=== PATIENT | male | born 1965 | race Caucasian/White ===

== ENCOUNTER 2016-05-01 12:01 | Emergency (ER) | payer BC ==
[~2016-05-01] VITALS: Wt 81.0 kg
[2016-05-01] MEDS ORDERED: KETOROLAC 60 MG INJ IM STA (13:16)
[2016-05-01] MEDS ORDERED: HYDROCODONE/APAP (10/325) TAB PO ONE (13:30)
[2016-05-01 13:36] LABS: URINE BLOOD (Dip) POC Trace-lysed (NEGATIVE)
--- NOTE | 2016-05-01 14:11 | RADRPT ---
PROCEDURE: XR lumbosacral Spine Series CLINICAL INDICATION: Pain TECHNIQUE: 3 standard radiographs were taken of the lumbosacral spine. COMPARISON: None FINDINGS: Alignment: the osseous elements are well aligned without evidence of subluxation. Disk spaces: the disk spaces are adequately maintained. Osseous structures: appear intact with no fracture or osseous destruction identified. There is mild diffuse anterior spondylosis most extensive on the superior endplate of L4. Joint spaces: the facet joints joints appear unremarkable. The sacroiliac joints appear normal. Soft tissues: appear unremarkable. IMPRESSION: 1. Mild anterior spondylosis 2. Otherwise, unremarkable lumbosacral spine series. Physician Ming Date Time Electronically viewed and signed by Physician Ming on 05/01/2016 14:11 /
[2016-05-01] MEDS ORDERED: IBUP-1542 PO (14:27)
[2016-05-01] MEDS ORDERED: HYDR-906 PO (14:27)
--- NOTE | 2016-05-01 14:31 | ERD ---
ER Documentation Chief Complaint Date/Time DATE: 05/01/16 TIME: 14:29 Chief Complaint LOWER CENTER OF BACKPAIN SINCE YESTERDAY GETTING WORSE TODAY .NO TRAUMA HPI This 50-year-old male presents with low back pain since yesterday. He denies any fall or inciting events. He was sitting on the couch when it began. Did play soccer a couple days before. He denies any bowel or bladder incontinence, weakness, fevers, urinary complaints. Patient has additional complaints of intermittent sharp chest pain although none currently. He has an additional complaint of bitemporal headache intermittently for last month. Denies any shortness of breath, rashes, neck stiffness, visual changes. ROS All systems reviewed and are negative except as per history of present illness. Medications Home Meds Active Scripts Hydrocodone/Acetaminophen (Haines 5-325 Tablet) 1 Each Tablet, 1 TAB PO Q6H Y for PAIN, #12 TAB Prov:DANIEL BRADLEY MD 05/01/16 Ibuprofen* (Motrin*) 600 Mg Tab, 600 MG PO Q6, #20 TAB Prov:DANIEL BRADLEY MD 05/01/16 PMhx/Soc History of Surgery: No Anesthesia Reaction: No Hx Neurological Disorder: No Hx Respiratory Disorders: No Hx Cardiac Disorders: No Hx Psychiatric Problems: No Hx Miscellaneous Medical Probl: No Physical Exam Vitals Vital Signs Date Time Temp Pulse Resp B/P Pulse Ox O2 Delivery O2 Flow Rate FiO2 05/01/16 12:03 97.8 71 16 114/60 98 Physical Exam Const: [] Alert, [id number] per Head: Atraumatic Eyes: Normal Conjunctiva ENT: Normal External Ears, Nose and Mouth. Neck: Full range of motion..~ No meningismus. Resp: Clear to auscultation bilaterally Cardio: Regular rate and rhythm, no murmurs Abd: Soft, non tender, non distended. Normal bowel sounds Skin: No petechiae or rashes Back: No midline or flank tenderness. Some generalized tenderness L4-5 paraspinous muscles without midline tenderness or deformities. Patient shows no appreciable deficits. Ext: No cyanosis, or edema Neur: Awake and alert. Ambulatory with discomfort without deficits or weakness Psych: Normal Mood and Affect Results 24 hrs Laboratory Tests Test 05/01/16 13:38 Bedside Urine Blood Trace-lysed Bedside Urine Glucose (UA) Negative Bedside Urine Ketones (LAB) Negative Bedside Urine Leukocyte Esterase (L Negative Bedside Urine Nitrite (LAB) Negative Bedside Urine Protein (LAB) Negative Bedside Urine pH (LAB) 6.0 Current Medications Medications (Trade) Dose Ordered Sig/Kulwant Route PRN Reason Start Time Stop Time Status Last Admin Dose Admin Ketorolac Tromethamine (Toradol) 60 mg ONCE STAT IM 05/01/16 13:16 05/01/16 13:17 DC 05/01/16 13:31 Acetaminophen/ Hydrocodone Bitart (Haines ()) 1 tab ONCE ONCE PO 05/01/16 13:30 05/01/16 13:31 DC 05/01/16 13:31 Procedures/MDM X-ray LS-Spine 3V Interpreted by me: Bones: No fracture, or lytic lesions Joints: No dislocation Foreign body: None. Impression-normal lumbar spine x-ray Urine shows trace blood but no leukocytes, glucose or nitrites. EKG: Rate/Rhythm: [Normal Sinus Rhythm] rate equals 76 QRS, ST, T-waves: [No changes consistent w/ acute ischemia] Impression: [No evidence of ischemia or arrhythmia]. Impression-normal EKG Patient was given Toradol 60 mg IM and Haines 10 mg. Patient presents with low back pain, likely muscular skeletal. There is no signs or symptoms to suggest genitourinary etiology, cauda equina syndrome, epidural abscess, bacterial infection, neurologic deficit, fracture, dislocation. He was treated with a short course of Haines and ibuprofen at home and instructions for back exercises. Patient was advised to follow-up with primary doctor this week or otherwise for new or worsening symptoms. The patient was stable with no new complaints during the ER course. Clinically, there is no current evidence to suggest meningitis, sepsis, acute abdomen, pneumonia, acute coronary syndrome, pulmonary embolism, or any other emergent condition appearing to require further evaluation or hospitalization. The patient should certainly return for any new or worsening symptoms per the aftercare instructions. They should otherwise follow-up with her primary care doctor for reevaluation this week. Departure Diagnosis: Primary Impression: Chest pain Chest pain type: unspecified Qualified Code: R07.9 - Chest pain, unspecified type Additional Impression: Back pain Back pain location: low back pain Chronicity: acute Back pain laterality: bilateral Sciatica presence: without sciatica Qualified Code: M54.5 - Acute bilateral low back pain without sciatica Condition: Stable Patient Instructions: Back Exercises, Lumbar, Back Pain (Acute Or Chronic), Chest Pain, Uncertain Cause Additional Instructions: X-ray and EKG and urine normal. Likely muscular skeletal back pain. Recommend stretching and exercises at home and follow-up with primary care doctor. Recheck otherwise for fevers, new or worsening symptoms. DANIEL BRADLEY MD May 01, 2016 14:31
== END 2016-05-01 14:43 | disposition home or self-care (01) ==
LOC: FTE 12:01
DX: R07.9 Chest pain, unspecified (principal)
CPT/HCPCS: 72100; 81003; 96372; 99284; J1885; 93005